=== PATIENT | female | born 2000 | race Two or more races ===

== ENCOUNTER 2024-10-19 16:39 | Emergency (ER) | payer OTHER ==
[~2024-10-19] VITALS: Ht 154.9 cm; Wt 68.9 kg
[2024-10-19] MEDS ORDERED: ORAPRED ODT10 MG PO (17:36)
[2024-10-19] MEDS ORDERED: 0.9 % SODIUM CHLORIDE 1,000 ML IV ONE (18:00)
[2024-10-19] MEDS ORDERED: KETOROLAC TROMETHAMINE 60 MG VIAL IM ONE (18:00)
[2024-10-19] MEDS ORDERED: FAMOtidine 10 MG/ML (4ML VIAL) IV ONE (18:00)
[2024-10-19] MEDS ORDERED: TAMSULOSIN HCL 0.4 MG CAP PO ONE (18:00)
[2024-10-19] MEDS ORDERED: CEFTRIAXONE SODIUM 1,000 MG VIAL IV ONE (18:00)
[2024-10-19 18:29] LABS: HEMATOCRIT 32.1 % (36.0-45.00); HEMOGLOBIN 10.5 g/dL (12.0-15.00); MEAN CORPUSCULAR HEMOGLOBIN 25.6 pg (27.00-32.0); MEAN CORPUSCULAR HGB CONC 32.9 g/dl (32.0-36.0); PLATELET COUNT 257 K/uL (150-450); RED BLOOD COUNT 4.11 M/uL (4.00-6.00); RED CELL DISTRIBUTION WIDTH 15.1 % (11.5-14.5)
[2024-10-19 18:55] LABS: ALBUMIN 3.1 gm/dL (3.4-5.0); ALKALINE PHOSPHATASE 65 U/L (50-136); ALT/SGPT 38 U/L (12-78); ANION GAP 9 (10.0-20.0); AST/SGOT 55 U/L (15-37); BILIRUBIN TOTAL 0.49 mg/dL (0.3-1.2); BLOOD UREA NITROGEN 14 mg/dL (7-18); BUN CREA RATIO 17 (7.0-25.0); CALCIUM 8.7 mg/dL (8.5-10.1); CARBON DIOXIDE 27 mEq/L (21-32); CHLORIDE 107 mmol/L (98-107); CREATININE SERUM 0.84 mg/dL (0.55-1.02); GFR 84.78; GLOBULINA 5.8 G/DL (2.4-3.5); GLUCOSE FASTING 91 mg/dL (65-100); OSMOLALITY SERUM 278 MOSM/KG (275-295); POTASSIUM 3.84 mEq/L (3.5-5.1); SODIUM 139 mmol/L (136-145); TOTAL PROTEIN 8.9 gm/dL (6.4-8.2)
[2024-10-19 18:58] LABS: HCG QUANTITATIVE < 1 mUI/mL (1-3)
[2024-10-19 19:05] LABS: URINE APPEARANCE Clear; URINE BILIRRUBIN Negative (NEGATIVE); URINE BLOOD Negative; URINE COLOR Yellow; URINE GLUCOSE Negative (NEGATIVE); URINE KETONE Negative (NEGATIVE); URINE LEUKOCYTE Trace; URINE NITRATE Negative; URINE PROTEIN Negative (NEGATIVE); URINE UROBILINOGEN 0.2 E.U./dl
[2024-10-19 19:09] LABS: URINE BACTERIA 966.9 uL (0.0-1933); URINE EPITHELIAL CELLS 27.8 uL (0.0-38.8); URINE RBC 13.4 uL (0.0-20.8); URINE WBC 71.3 uL (0.0-23.2)
[2024-10-19 19:12] LABS: URINE CAST 0.14 uL (0.0-1.40)
[2024-10-19] MEDS ORDERED: PEPCID AC20 MG PO (21:29)
[2024-10-19] MEDS ORDERED: KETO10TA2 PO (21:29)
[2024-10-19] MEDS ORDERED: BACTRIM DS TAB1 EACH PO (21:29)
== END 2024-10-19 22:35 | disposition home or self-care (01) ==
LOC: ER 16:41
PROVIDERS: General Practice
DX: R10.32 Left lower quadrant pain (principal); N83.291 Other ovarian cyst, right side